=== PATIENT | female | born 1980 | race Caucasian/White ===

== ENCOUNTER 2024-08-31 12:19 | Inpatient (IN) | payer MEDICAID, OTHER ==
[~2024-08-31] VITALS: Ht 149.9 cm; Wt 52.0 kg
--- NOTE | 2024-08-31 12:37 | ED.PDOC ---
GI ASSESSMENT HPI Comments This is a 43-year-old female who comes in with chief complaint of abdominal pain for the past eight days. The patient states that she has had similar pain in 2019 but they never told her what it was. They did find possibly a mass on her adrenal gland. She is now complaining of the right upper quadrant pain which radiates towards her back. She rates the pain as a 6/10 and it was associated with nausea but no vomiting or diarrhea. She denies any fever or chills. She states that occasionally the pain wakes her up in the middle of the night. Chief Complaint: Abdominal Pain Time Seen by MD: 12:24 Primary Care Provider: UNKNOWN Reviewed Notes: Nurses Notes, Medications, Allergies (Allergies to codeine) Allergies: Coded Allergies: Codeine (Verified Allergy, Unknown, 08/31/24) Information Source: Patient Mode of Arrival: Ambulatory Timing: Days Duration: Since onset Prehospital treatment: None Quality: Burning Vomitus: None Stool: Normal Severity: Moderate Recent: None Recent Hx of: None Pain Location: RUQ Modifying Factors: Nothing Associated sign and symptoms: Nausea, Abdominal Pain Past Medical History PAST MEDICAL HISTORY: Anxiety, Depression, GERD Surgical History (Other): Left ovarian cyst surgery [employer] 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 Family History Family History: Reviewed,noncontributory to illness Social History Smoker: Greater Than 1 Pack/Day Alcohol: Denies ETOH Use Drugs: Denies Drug Use Lives In: Home Constitutional: denies: chills, diaphoresis, fatigue, fever, malaise, sweats, weakness, others EENTM: denies: blurred vision, double vision, ear bleeding, ear discharge, ear drainage, ear pain, ear ringing, eye pain, eye redness, hearing loss, mouth pain, mouth swelling, nasal discharge, nose bleeding, nose congestion, nose pain, photophobia, tearing, throat pain, throat swelling, voice changes, others Respiratory: denies: cough, hemoptysis, orthopnea, SOB at rest, shortness of breath, SOB with excertion, stridor, wheezing, others Cardiovascular: denies: chest pain, dizzy spells, diaphoresis, Dyspnea on e xertion, edema, irregular heart beat, left arm pain, lightheadedness, palpitations, PND, syncope, others Gastrointestinal: reports: abdominal pain, nausea; denies: abdomen distended, blood streaked bowels, constipated, diarrhea, dysphagia, difficulty swallowing, hematemesis, melena, poor appetite, poor fluid intake, rectal bleeding, rectal pain, vomiting, others Genitourinary: denies: abnormal vagina bleeding, burning, dyspareunia, dysuria, flank pain, frequency, hematuria, incontinence, pain, , vagina discharge, urgency, others Neurological: denies: dizziness, fainting, headache, left sided numbness, left sided weakness, numbness, paresthesia, pre-existing deficit, right sided numbness, right sided weakness, seizure, speech problems, tingling, tremors, weakness, others Musculoskeletal: denies: back pain, gout, joint pain, joint swelling, muscle pain, muscle stiffness, neck pain, others Integumetry: denies: bruises, change in color, change in hair/nails, dryness, laceration, lesions, lumps, rash, wounds, others Allergic/Immunocompromised: denies: Difficulty Healing, Frequent Infections, Hives, Itching, others Hematologic/Lymphatic: denies: anemia, blood clots, easy bleeding, easy bruis ing, swollen glands, others Endocrine: denies: excessive hunger, excessive sweating, excessive thirst, exc essive urination, flushing, intolerance to cold, intolerance to heat, unexplained weight gain, unexplained weight loss, others Psychiatric: denies: anxiety, bipolar disorder, depression, hopeless, panic disorder, schizophrenia, sleepless, suicidal, others Physical Exam General Appearance: Moderate Distress HEENT: Normal ENT Inspection, Pharynx Normal, TMs Normal Neck: Full Range of Motion, Non-Tender, Normal, Normal Inspection Respiratory: Chest Non-Tender, Lungs Clear, No Accessory Muscle Use, No Respiratory Distress, Normal Breath Sounds Cardiovascular: No Edema, No JVD, No Murmur, No Gallop, Normal Peripheral Puls es, Regular Rate/Rhythm Breast Exam: Deferred Gastrointestinal: No Organomegaly, No Pulsatile Mass, Normal Bowel Sounds, RUQ, Soft, Tenderness Genitalia: Deferred Pelvic: Deferred Rectal: Deferred Extremities: No calf tenderness, Normal capillary refill, Normal inspection, Normal range of motion, Non-tender, No pedal edema Musculoskeletal : Apperance: Normal Neurologic: Alert, local coordinator II-XII nml as Tested, No Motor Deficits, Normal Affect, Normal Mood, No Sensory Deficits Cerebellar Function: Normal Reflexes: Normal Skin: Dry, Normal Color, Warm Lymphatic: No Adenopathy Was a procedure done? Was a procedure done?: No GI differential Dx Differential Diagnosis: Cholangitis, Cholecystitis, Gastritis/PUD, Gastroenteritis, Inflammatory BD, Pancreatitis, Electrolyte Imbalance, Food Poisoning X-Ray, Labs, Meds, VS Vital Signs Date Time Temp Pulse Resp B/P (MAP) Pulse Ox O2 Delivery O2 Flow Rate FiO2 08/31/24 12:30 97.7 99 18 127/87 (100) 100 Lab Test 08/31/24 13:25 08/31/24 12:53 Range/Units Urine Color Light-yellow Yellow Urine Clarity Turbid H Clear Urine pH 5.5 5.0-9.0 Urine Specific [place] 1.011 1.001-1.035 Urine Protein Negative Negative Urine Ketones 1+ H Negative Urine Blood Negative Negative /uL Urine Nitrite Negative Negative Urine Bilirubin Negative Negative Urine Urobilinogen Normal Negative mg/dL Urine Leukocyte Esterase Trace Negative /uL Urine RBC 1 0 - 4 /hpf Urine WBC 3 0 - 5 /hpf Urine Squamous Epithelial Cells Few <5 /hpf Urine Bacteria Few H None Seen /hpf Urine Glucose Normal Normal mg/dL White Blood Count 8.3 4.4-10.8 10^3/uL Red Blood Count 4.84 4.0-5.20 10^6/uL Hemoglobin 15.4 12.2-16.2 g/dL Hematocrit 44.6 36.0-46.0 % Mean Corpuscular Volume 92.1 80.0-100.0 fL Mean Corpuscular Hemoglobin 31.9 28.0-32.0 pg Mean Corpuscular Hemoglobin Concent 34.6 32.0-36.0 g/dL Red Cell Distribution Width 14.3 11.8-14.3 % Platelet Count 349 140-450 10^3/uL Mean Platelet Volume 8.2 6.9-10.8 fL Neutrophils (%) (Auto) 56.9 37.0-80.0 % Lymphocytes (%) (Auto) 28.3 10.0-50.0 % Monocytes (%) (Auto) 6.9 0.0-12.0 % Eosinophils (%) (Auto) 6.7 0.0-7.0 % Basophils (%) (Auto) 1.2 0.0-2.0 % Neutrophils # (Auto) 4.7 1.6-8.6 10 ^3/uL Lymphocytes # (Auto) 2.3 0.4-5.4 10 ^3/uL Monocytes # (Auto) 0.6 0-1.3 10 ^3/uL Eosinophils # (Auto) 0.6 0-0.8 10 ^3/uL Basophils # (Auto) 0.1 0-0.2 10 ^3/uL Nucleated Red Blood Cells 0.2 % Sodium Level 138 136-145 mmol/L Potassium Level 3.5 3.5-5.1 mmol/L Chloride Level 102 98-107 mmol/L Carbon Dioxide Level 26 20-31 mmol/L Anion Gap 10 5-15 Blood Urea Nitrogen 7 L 9-23 mg/dL Creatinine 0.62 0.550-1.02 mg/dL Glomerular Filtration Rate Calc 113 >90 mL/min BUN/Creatinine Ratio 11.3 10.0-20.0 Serum Glucose 82 74-106 mg/dL Calcium Level 10.1 8.7-10.4 mg/dL Total Bilirubin 0.7 0.2-1.0 mg/dL Aspartate Amino Transferase (AST) 18 13-40 U/L Alanine Aminotransferase (ALT) 17 7-40 U/L Alkaline Phosphatase 75 46-116 U/L Total Protein 7.6 5.7-8.2 g/dL Albumin 4.7 3.2-4.8 g/dL Lipase 60 H 12-53 U/L US GALLBLADDER IMPRESSION: Unremarkable abdominal ultrasound. At this time, the CBC is within normal limits The chemistry panel is within normal limits The lipase level is elevated at 60 The urine test is positive for a small UTI The patient was still having persistent abdominal pain The patient was given morphine for the pain and Zofran for the nausea The patient was being admitted at this time Images Reviewed?: Images reviewed and evaluated by me Time of 1ST Reevaluation: 12:36 Reevaluation 1ST: Unchanged Patient Education/Counseling: Diagnosis, Treatment, Prognosis Family Education/Counseling: No Family Present Departure 1 Departure Time of Disposition: 14:43 Impression: Primary Impression: Intractable abdominal pain Additional Impression: Elevated lipase Disposition: ADMITTED INPATIENT Admit to: Med Surg Condition: Fair Critical Care Note Critical Care Time?: No Stability Stability form required: Yes Unstable for transfer: ED Physician Assesment (Clinical assesment) Heart Score Heart Score: Heart Score Response (Comments) Value History N/A 0 EKG N/A 0 Age N/A 0 Risk Factors N/A 0 Troponin N/A 0 Total 0 I personally scribed for SILVIO LANDRY MD ([email or web address]) on 08/31/24 at 14:19. Electronically submitted by Franky Wang ([facility]). SILVIO LANDRY MD Aug 31, 2024 12:37
[2024-08-31 12:52] LABS: Urine Bacteria FEW /hpf (None Seen); Urine Blood Negative /uL (Negative); Urine Clarity Turbid (Clear); Urine Color Light-Yellow (Yellow); Urine Protein, UAD Negative (Negative); Urine Specific Gravity 1.011 (1.001-1.035); Urine Urobilinogen Normal (Negative); Urine WBC 3 /hpf (0 - 5); Urine pH 5.5 (5.0-9.0)
[2024-08-31 13:00] LABS: Basophils # (auto) 0.1 10 ^3/uL (0-0.2); Basophils % (auto) 1.2 % (0.0-2.0); Eosinophils # (auto) 0.6 10 ^3/uL (0-0.8); Eosinophils % (auto) 6.7 % (0.0-7.0); Hematocrit 44.6 % (36.0-46.0); Hemoglobin 15.4 g/dL (12.2-16.2); Lymphocytes # (auto) 2.3 10 ^3/uL (0.4-5.4); Lymphocytes % (auto) 28.3 % (10.0-50.0); Mean Corpuscular Hemoglobin 31.9 pg (28.0-32.0); Mean Corpuscular Hgb Conc. 34.6 g/dL (32.0-36.0); Mean Corpuscular Volume 92.1 fL (80.0-100.0); Monocytes # (auto) 0.6 10 ^3/uL (0-1.3); Monocytes % (auto) 6.9 % (0.0-12.0); Neutrophils # (auto) 4.7 10 ^3/uL (1.6-8.6); Neutrophils % (auto) 56.9 % (37.0-80.0); Nucleated Red Blood Cells % 0.2 %; Platelet Count (auto) 349 10^3/uL (140-450); Red Blood Cells 4.84 10^6/uL (4.0-5.20); Red Cell Distribution Width 14.3 % (11.8-14.3); White Blood Cell 8.3 10^3/uL (4.4-10.8)
[2024-08-31 13:34] LABS: Alanine Aminotransferase 17 U/L (7-40); Albumin 4.7 g/dL (3.2-4.8); Alkaline Phosphatase 75 U/L (46-116); Anion Gap 10 (5-15); Aspartate Aminotransferase 18 U/L (13-40); BUN/Creatinine Ratio 11.3 (10.0-20.0); Bilirubin, Total 0.7 mg/dL (0.2-1.0); Blood Urea Nitrogen 7 mg/dL (9-23); Calcium 10.1 mg/dL (8.7-10.4); Carbon Dioxide 26 mmol/L (20-31); Chloride 102 mmol/L (98-107); Glucose 82 mg/dL (74-106); Potassium 3.5 mmol/L (3.5-5.1); Sodium 138 mmol/L (136-145); Total Protein 7.6 g/dL (5.7-8.2)
--- NOTE | 2024-08-31 13:34 | DVH ---
US GALLBLADDER HISTORY: ruq pain COMPARISON: None TECHNIQUE: Transverse and longitudinal grayscale and color sonographic images were obtained of the ab domen. FINDINGS: Liver: - Size: 12.7 cm - Echogenicity: Heterogenous - Surface Contour: Smooth - Liver Lesion(s): None - Portal Vein: Patent and forward flowing. - Bile Ducts: Normal. The common bile duct measures 3.7 mm. Gallbladder: Normal. The sonographic Aragon sign is negative. Pancreas: Not well visualized. Kidneys: - Right kidney size: 9.8 cm. There is no hydronephrosis, renal calculi, or mass lesion. Other: None IMPRESSION: Unremarkable abdominal ultrasound.
[2024-08-31 13:54] LABS: Lipase 60 U/L (12-53)
[2024-08-31] MEDS: PANTOPRAZOLE 40 MG/10 ML VIAL INJ IV ONE ×2 (15:21→15:28)
[2024-08-31] MEDS: ONDANSETRON HCL 4 MG/2 ML VIAL IV ONE (15:21)
[2024-08-31] MEDS: MORPHINE SULFATE 4 MG/ML SYR/VIAL IV ONE (15:22)
[2024-08-31] MEDS: ONDANSETRON HCL 4 MG/2 ML VIAL ONE (15:28)
[2024-08-31] MEDS: MORPHINE SULFATE 4 MG/ML SYR/VIAL ONE (15:29)
[2024-08-31] MEDS ORDERED: DOCUSATE SOD 100 MG CAP PO PRN (21:00)
[2024-08-31] MEDS ORDERED: NITROGLYCERIN 0.4 MG SL TAB SL PRN (21:00)
[2024-08-31] MEDS ORDERED: MORPHINE SULFATE INJ 2 MG/ml SYRG IV PRN ×3 (21:00→23:00)
[2024-08-31] MEDS: SODIUM CHLOR 0.9% PF (SALINE LOCK) 10ML VIAL/SYR IV SCH (22:05)
--- NOTE | 2024-08-31 22:50 | DVHHPRES ---
History of Present Illness Resident Creating Document: TEA DREW RESIDENT History of Present Illness Patient is 43 years old female with past medical history of anxiety, depression, GERD came with a complaint of abdominal pain. As per patient patient has been having abdominal pain started 8 days before. Patient reported pain is intermittent, in the upper upper abdominal region, crampy in nature, usually last 5 minutes, was pain was 10/10, radiates to the shoulder, factor, relieved with lying on the abdomen. Patient also reported having nausea but no vomiting. Patient denied any fever, dysuria, constipation or diarrhea, chest pain or shortness of breath, acute joint pain or swelling, dysarthria or slurring of speech or eating over a week. Initial lab workup revealed lipase 60, urinalysis revealed leukocyte esterase trace, RBC 1, WBC 3, bacteria few. Ultrasound of the abdomen revealed unremarkable abdominal ultrasound. Past Medical History anxiety, depression, GERD Past Surgical History Status post left ovarian cyst surgery Family History Lives with a partner, denies smoking, denies alcoholism, denies substance abuse Review of Systems Review of Systems Allergy- codeine Patient was seen today at the bedside. Patient abdominal pain and nausea Cardiovascular- deny acute chest pain or shortness of breath or cough or palpitation Respiratory- denies cough or short of breath or wheezing Gastrointestinal- denies any rectal bleeding, nausea or vomiting Musculoskeletal-denies acute joint swelling or tenderness or redness Neurological- denies acute dysarthria, dysphagia, change in vision Psychiatry- denies depression or SI or HI Skin- denies acute rash or purpura Allergies: Coded Allergies: Codeine (Verified Allergy, Unknown, 08/31/24) Medications Current Medications Medications Dose Ordered Sig/Pierre Route Start Time Stop Time Status Last Admin Dose Admin Sodium Chloride 10 ml Q8HR IV 08/31/24 22:00 08/31/24 22:05 10 ML Ondansetron HCl 4 mg Q4HP PRN IV 08/31/24 21:00 Docusate Sodium 100 mg BIDPRN PRN PO 08/31/24 21:00 Acetaminophen 650 mg Q6HP PRN PO 08/31/24 21:00 Morphine Sulfate 2 mg Q4HPRN PRN IV 08/31/24 21:00 Nitroglycerin 0.4 mg Q5MINP PRN SL 08/31/24 21:00 Morphine Sulfate 2 mg Q30M PRN IV 08/31/24 21:00 Exam Vital Signs Vital Signs Date Time Temp Pulse Resp B/P (MAP) Pulse Ox O2 Delivery O2 Flow Rate FiO2 08/31/24 18:18 97.7 70 16 117/78 (91) 99 97.7 08/31/24 14:56 Room Air Exam General examination- awake, alert, oriented, conversant HEENT- PEERLA, no acute nasal discharge Cardiovascular- S1-S2 audible, rate and rhythm regular, no murmur Respiratory- CTAB, no wheeze or rhonchi Gastrointestinal-upper abdominal tenderness, bowel sound+. Nondistended Musculoskeletal-no acute joint swelling or tenderness or redness# Lower extremity- no leg edema Neurological- cranial nerves intact, no acute dysarthria or dysphagia Psychiatry- denies depression or SI or HI Skin- no acute rash or purpura Labs/Xrays Labs Test 08/31/24 13:25 08/31/24 12:53 Range/Units Urine Color Light-yellow Yellow Urine Clarity Turbid H Clear Urine pH 5.5 5.0-9.0 Urine Specific [place] 1.011 1.001-1.035 Urine Protein Negative Negative Urine Ketones 1+ H Negative Urine Blood Negative Negative /uL Urine Nitrite Negative Negative Urine Bilirubin Negative Negative Urine Urobilinogen Normal Negative mg/dL Urine Leukocyte Esterase Trace Negative /uL Urine RBC 1 0 - 4 /hpf Urine WBC 3 0 - 5 /hpf Urine Squamous Epithelial Cells Few <5 /hpf Urine Bacteria Few H None Seen /hpf Urine Glucose Normal Normal mg/dL White Blood Count 8.3 4.4-10.8 10^3/uL Red Blood Count 4.84 4.0-5.20 10^6/uL Hemoglobin 15.4 12.2-16.2 g/dL Hematocrit 44.6 36.0-46.0 % Mean Corpuscular Volume 92.1 80.0-100.0 fL Mean Corpuscular Hemoglobin 31.9 28.0-32.0 pg Mean Corpuscular Hemoglobin Concent 34.6 32.0-36.0 g/dL Red Cell Distribution Width 14.3 11.8-14.3 % Platelet Count 349 140-450 10^3/uL Mean Platelet Volume 8.2 6.9-10.8 fL Neutrophils (%) (Auto) 56.9 37.0-80.0 % Lymphocytes (%) (Auto) 28.3 10.0-50.0 % Monocytes (%) (Auto) 6.9 0.0-12.0 % Eosinophils (%) (Auto) 6.7 0.0-7.0 % Basophils (%) (Auto) 1.2 0.0-2.0 % Neutrophils # (Auto) 4.7 1.6-8.6 10 ^3/uL Lymphocytes # (Auto) 2.3 0.4-5.4 10 ^3/uL Monocytes # (Auto) 0.6 0-1.3 10 ^3/uL Eosinophils # (Auto) 0.6 0-0.8 10 ^3/uL Basophils # (Auto) 0.1 0-0.2 10 ^3/uL Nucleated Red Blood Cells 0.2 % Sodium Level 138 136-145 mmol/L Potassium Level 3.5 3.5-5.1 mmol/L Chloride Level 102 98-107 mmol/L Carbon Dioxide Level 26 20-31 mmol/L Anion Gap 10 5-15 Blood Urea Nitrogen 7 L 9-23 mg/dL Creatinine 0.62 0.550-1.02 mg/dL Glomerular Filtration Rate Calc 113 >90 mL/min BUN/Creatinine Ratio 11.3 10.0-20.0 Serum Glucose 82 74-106 mg/dL Calcium Level 10.1 8.7-10.4 mg/dL Total Bilirubin 0.7 0.2-1.0 mg/dL Aspartate Amino Transferase (AST) 18 13-40 U/L Alanine Aminotransferase (ALT) 17 7-40 U/L Alkaline Phosphatase 75 46-116 U/L Total Protein 7.6 5.7-8.2 g/dL Albumin 4.7 3.2-4.8 g/dL Lipase 60 H 12-53 U/L Assessment/Plan Assessment/Plan #Acute abdominal pain likely due to pancreatitis/gastritis -lipase 60, -ultrasound of the abdomen-Unremarkable abdominal ultrasound. -continue pain medication as prescribed -continue pantoprazole 40 mg IV daily -continue IV fluid as prescribed -CT of the abdomen and pelvis- No CT evidence for acute intra-abdominal or intrapelvic process. 2.6 cm right adrenal adenoma. Bilateral pars defects with grade 1 anterolisthesis at L5-S1. #Suspected acute pancreatitis --lipase 60, -ultrasound of the abdomen-Unremarkable abdominal ultrasound. -continue pain medication as prescribed -continue pantoprazole 40 mg IV daily -continue IV fluid as prescribed - CT of the abdomen and pelvis -No CT evidence for acute intra-abdominal or intrapelvic process. 2.6 cm right adrenal adenoma. Bilateral pars defects wi th grade 1 anterolisthesis at L5-S1. #acute cystitis -leukocyte esterase trace, RBC 1, WBC 3, bacteria few -continue ceftriaxone 1 g IV daily -pending urine CS # GERD -continue pantoprazole 40 mg IV daily # anxiety -follow up outpatient # depression -follow up outpatient # 2.6 cm right adrenal adenoma -incidental finding on CT scan of the abdomen -outpatient follow up #Bilateral pars defects with grade 1 anterolisthesis at L5-S1. -incidental finding on CT abdomen -outpatient follow up Goals of care/advance care planning; FULL CODE; discussed with the patient >15 minutes PUD prophylaxis: DVT prophylaxis: PCP-Dr. Jessica Ruffin Plan discussed with Dr. Ortiz, nursing staff, patient Total time spent on patient evaluation, chart review, assessment and plan, discussion discussion >30 minutes Plan discussed with: Patient Plan discussed with: Patient, Other (RN) My Orders Orders - TEA DREW RESIDENT Procedure Category Date Status Time Admit ADMIT 08/31/24 Transmitted 20:48 Code Status CODE 08/31/24 Transmitted 20:48 Sodium Chloride Lock PHA 08/31/24 In Process (Saline Lock Ns) 22:00 Ondansetron Hcl PHA 08/31/24 In Process (Zofran) 21:00 Docusate Sodium PHA 08/31/24 In Process Capsule (Colace 21:00 Complete Blood Count LAB 09/01/24 Verified 04:00 Comprehensive LAB 09/01/24 Verified Metabolic Panel 04:00 Npo (Nothing By DIET 09/01/24 Transmitted Mouth) Diet Breakfast Acetaminophen Tablet PHA 08/31/24 In Process (Tylenol Tablet) 21:00 Morphine Sulfate PHA 08/31/24 In Process Injection 21:00 Nitroglycerin PHA 08/31/24 In Process Sublingual (Ntrostat 21:00 Morphine Sulfate PHA 08/31/24 In Process Injection 21:00 Oxygen By Nasal RT 08/31/24 Transmitted Cannula 20:48 Stat Ekg For Chest YOANNA 08/31/24 In Process Pain 20:48 Notify Of Changes YOANNA 08/31/24 In Process From Base 20:48 Diamond Sizer And Grader For YOANNA 08/31/24 In Process 24 Hours 20:48 Emergency Dysrhythmia BANNER 08/31/24 In Process Protocol 20:48 Rhythm Strips Once BANNER 08/31/24 In Process Every Shift 20:48 Date of Service: Aug 31, 2024 Billing Provider: BLANCHE ORTIZ MD Common Visit Codes: [id number] INP/OBS CARE (HIGH) TEA DREW Aug 31, 2024 22:50 BLANCHE ORTIZ MD Sep 01, 2024 17:52
[2024-08-31] MEDS ORDERED: ONDANSETRON HCL 4 MG/2 ML VIAL IV PRN (23:00)
[2024-08-31] MEDS: D5W/SOD CHLO 0.9% 1,000 ML IV SCH (23:00)
[2024-09-01] MEDS: cefTRIAXone 1GM/50ML D5W 50 ML IV ONE (00:09)
[2024-09-01 00:18] LABS: Amphetamine Screen, Urine Neg (NEGATIVE)
[2024-09-01 00:19] LABS: Barbiturate Scree,Urine Neg (NEGATIVE); Benzodiazephine Screen, Urine Neg (NEGATIVE); Cannabinoid Screen, Urine Neg (NEGATIVE); Cocaine Screen, Urine Neg (NEGATIVE); Opiate Scree,Urine Neg (NEGATIVE); Phencyclidine Screen, Urine Neg (NEGATIVE)
--- NOTE | 2024-09-01 04:20 | DVH ---
Procedure: CT CT AB PEL WO CON-NO ORAL OR IV 09/01/2024 12:19 AM Indication: Abdominal pain, nausea Comparison Study: None available at time of dictation. Technique: Noncontrast Axial images of the abdomen and pelvis were obtained and reformatted in [place] l and sagittal planes. All CT scans at this medical facility are performed using dose modulation techniques as appropriate t o a performed exam including the following: Automated exposure control was utilized; adjustment of th e MA and/or KV according to patient size; and use of iterative reconstruction technique. CT Dose: CTDI volume is 5.36 mGy. Dose-length product is 268.97 mGy*cm FINDINGS: Imaged portions of the lung bases appear unremarkable. Limited noncontrast evaluation of the liver, s pleen, gallbladder, pancreas, and kidneys appear unremarkable. There is a 2.6 cm right adrenal lesion with characteristics of a adenoma. No evidence of bowel obstruction or focal bowel wall thickening. The appendix appears normal. No holley e fluid, free air, or adenopathy. No suspicious osseous lesion. Bilateral pars defects with grade 1 a nterolisthesis at L5-S1. IMPRESSION: 1. No CT evidence for acute intra-abdominal or intrapelvic process. 2. 2.6 cm right adrenal adenoma. 3. Bilateral pars defects with grade 1 anterolisthesis at L5-S1. hs:Y
[2024-09-01 04:38] LABS: Basophils # (auto) 0.2 10 ^3/uL (0-0.2); Basophils % (auto) 2.2 % (0.0-2.0); Eosinophils # (auto) 0.6 10 ^3/uL (0-0.8); Eosinophils % (auto) 8.1 % (0.0-7.0); Hemoglobin 14.1 g/dL (12.2-16.2); Lymphocytes % (auto) 26.1 % (10.0-50.0); Mean Corpuscular Hemoglobin 32.6 pg (28.0-32.0); Mean Corpuscular Hgb Conc. 35.3 g/dL (32.0-36.0); Mean Corpuscular Volume 92.2 fL (80.0-100.0); Monocytes # (auto) 0.5 10 ^3/uL (0-1.3); Monocytes % (auto) 7.1 % (0.0-12.0); Neutrophils # (auto) 4.3 10 ^3/uL (1.6-8.6); Neutrophils % (auto) 56.5 % (37.0-80.0); Nucleated Red Blood Cells % 0.1 %; Platelet Count (auto) 275 10^3/uL (140-450); Red Blood Cells 4.34 10^6/uL (4.0-5.20); Red Cell Distribution Width 13.9 % (11.8-14.3); White Blood Cell 7.6 10^3/uL (4.4-10.8)
[2024-09-01 04:57] LABS: Alanine Aminotransferase 15 U/L (7-40); Albumin 4.5 g/dL (3.2-4.8); Alkaline Phosphatase 67 U/L (46-116); Anion Gap 9 (5-15); Aspartate Aminotransferase 15 U/L (13-40); BUN/Creatinine Ratio 12.9 (10.0-20.0); Blood Urea Nitrogen 8 mg/dL (9-23); Calcium 9.8 mg/dL (8.7-10.4); Carbon Dioxide 26 mmol/L (20-31); Chloride 103 mmol/L (98-107); Glucose 73 mg/dL (74-106); Potassium 3.8 mmol/L (3.5-5.1); Sodium 138 mmol/L (136-145)
[2024-09-01 04:58] LABS: Bilirubin, Total 0.5 mg/dL (0.2-1.0); Total Protein 6.8 g/dL (5.7-8.2)
[2024-09-01] MEDS: LACTATED RINGER'S 1,000 ML IV SCH (06:25)
[2024-09-01] MEDS: ONDANSETRON HCL 4 MG/2 ML VIAL IV PRN (09:23)
[2024-09-01] MEDS: cefTRIAXone 1GM/50ML D5W 50 ML IV SCH (09:23)
[2024-09-01] MEDS: PANTOPRAZOLE 40 MG/10 ML VIAL INJ IV SCH (10:14)
[2024-09-01] MEDS ORDERED: MAALOX PLUS or MAALOX 30 ML PO PRN (12:30)
[2024-09-01] MEDS: ACETAMINOPHEN 325 MG TAB PO PRN (13:58)
--- NOTE | 2024-09-01 14:17 | DVHPNRES ---
Progress Note Date Seen: Sep 01, 2024 Resident Creating Document: DEIRDRE LOPEZ RESIDENT Medical Necessity Reason Pt with a Central, PICC or Fol: No Subjective Review of Systems BERENICE WASHINGTON is a 43 years old female with a PMH of anxiety, depression, GERD, hiatal hernia presented to the ED with the chief complaints of abdominal pain since 8 as prior to admission. Patient reported pain has been started in the right upper quadrant intermittent, 10/10, diffusing 2 backwards and to the shoulder blades, not aggravated with eating or drinking but lying flat associated with severe nausea but no vomiting or diarrhea, fever, constipation, chest pain, shortness of breath and other associated symptoms. patient denies eating unusual food, sick contacts, recent travel. PMH: Anxiety, depression, GERD, hiatal hernia PSH: D and C, status post left ovarian cyst surgery Family history: Reviewed, noncontributory Social history: Lives with a partner. Denies smoking, alcohol and other drug abuse Allergies: codeine allergy Patient seen and examined at the bedside. Patient reported improvement in her abdominal pain since admission. Patient concerns were addressed. Advanced the diet to full liquid. Currently on Protonix , given GI cocktail. gallbladder ultrasound showed no acute changes, CT abdominal pelvis showed no acute abdominal changes but 2.6 cm right adrenal adenoma, grade 1 anterolisthesis at L5-S1. Patient reports: Feels better Objective vital signs Vital Sign Date Time Temp Pulse Resp B/P (MAP) Pulse Ox O2 Delivery O2 Flow Rate FiO2 09/01/24 11:49 98.3 81 17 104/64 (77) 95 98.3 09/01/24 08:00 Room Air* 0 21 medications Current Medications Medications Dose Ordered Sig/Pierre Route Start Time Stop Time Status Last Admin Dose Admin Sodium Chloride 10 ml Q8HR IV 08/31/24 22:00 09/01/24 14:04 10 ML Ondansetron HCl 4 mg Q4HP PRN IV 08/31/24 21:00 09/01/24 09:23 4 MG Docusate Sodium 100 mg BIDPRN PRN PO 08/31/24 21:00 Acetaminophen 650 mg Q6HP PRN PO 08/31/24 21:00 09/01/24 13:58 650 MG Morphine Sulfate 2 mg Q4HPRN PRN IV 08/31/24 21:00 Nitroglycerin 0.4 mg Q5MINP PRN SL 08/31/24 21:00 Morphine Sulfate 2 mg Q30M PRN IV 08/31/24 21:00 Pantoprazole Sodium 40 mg DAILY IV 09/01/24 10:00 09/01/24 10:14 40 MG Ondansetron HCl 4 mg Q4HPRN PRN IV 08/31/24 23:00 Morphine Sulfate 1 mg Q6HP PRN IV 08/31/24 23:00 Ceftriaxone Sodium 50 ml @ 100 mls/hr DAILY@09 IV 09/01/24 09:00 09/01/24 09:23 100 MLS/HR Lactated Ringer's 1,000 ml @ 125 mls/hr Q8H IV 09/01/24 06:00 09/01/24 14:04 125 MLS/HR Al Hydrox/Mg Hydrox/Simethicone 15 ml Q8HP PRN PO 09/01/24 12:30 UNV Examination Pt is lying on bed General Appearance: Alert, Oriented X3, Cooperative, Not in acute distress HEENT: Atraumatic, Mucous membranes moist/pink Respiratory: Clear to auscultation, Normal air movement, No added sounds Cardiovascular: Regular rate, Normal S1, Normal S2, No murmurs Abdominal: Right upper quadrant and mild epigastric tenderness Active bowel sounds, Soft, no distention, Extremities: No edema, Normal pulses, No tenderness/swelling Skin: No Significant rash, except past surgical scars Neuro: Normal speech, sensorimotor deficits none Psych/Mental Status: Mental status NL, Mood NL Nurse was there as sharperone during examination laboratory and microbiology Laboratory Tests 09/01/24 03:39 Test 09/01/24 03:39 Range/Units Serum Glucose 73 L 74-106 mg/dL Labs and/or images reviewed: Labs reviewed by me, Image(s) reviewed by me Problem List/Assessment/Plan Problem List/Assessment/Plan # acute abdominal pain likely due to resolving pancreatitis vs gastritis - mildly elevated lipase - currently giving Protonix and GI cocktail - gallbladder ultrasound showed no acute changes, - CT abdominal pelvis showed no acute abdominal changes but 2.6 cm right adrenal adenoma - Advanced the diet to full liquid. # rule out acute UTI - urinalysis weakly positive - currently on Rocephin # GERD -continue pantoprazole 40 mg IV daily # Anxiety -follow up outpatient # Depression -follow up outpatient # right adrenal adenoma -incidental finding on CT scan of the abdomen -outpatient follow up # Bilateral pars defects with grade 1 anterolisthesis at L5-S1. -incidental finding on CT abdomen -outpatient follow up No VTE PPX since patient is ambulatory Protonix regular diet Reconciled home meds Goals of care discussed with the patient for more than 27 minutes: Full code status Case management discussed with Dr. Mcdonald, patient and nurse Plan discussed with: Patient My Orders My Orders Orders - DEIRDRE LOPEZ Procedure Category Date Status Time Vitamin B12 LAB 09/01/24 In Process 08:33 Vitamin D, 25-Hydroxy LAB 09/01/24 In Process 08:33 Full Liq Diet DIET 09/01/24 Transmitted Lunch Alum & Mag PHA 09/01/24 Logged Hydrox-Simethicone 12:30 Alum & Mag PHA 09/01/24 Logged Hydrox-Simethicone 12:30 Date of Service: Sep 01, 2024 Billing Provider: MIKKI MCDONALD MD Common Visit Codes: [id number] INP/OBS CARE(HIGH) DEIRDRE LOPEZ Sep 01, 2024 14:17 MIKKI MCDONALD MD Sep 01, 2024 20:03
[2024-09-01] MEDS: MAALOX PLUS or MAALOX 30 ML PO ONE (16:26)
[2024-09-01 18:53] VITALS: RESP 18
[2024-09-01] MEDS ORDERED: ALPR0.5T7 PO (19:10)
[2024-09-01] MEDS ORDERED: CALC500C3 PO (19:10)
[2024-09-01 21:00] VITALS: BP 130/77; PULSE 79; RESP 16; TEMP 97.4; O2SAT 98
[2024-09-02 00:45] VITALS: BP 108/53; PULSE 71; RESP 16; TEMP 97.6; O2SAT 99
[2024-09-02 09:00] VITALS: BP 99/62; PULSE 74; RESP 18; TEMP 97.9; O2SAT 99
[2024-09-02 13:00] VITALS: BP 104/60; PULSE 77; RESP 20; TEMP 98; O2SAT 98
[2024-09-02] MEDS ORDERED: GICOCKTAIL PO (15:22)
[2024-09-02] MEDS ORDERED: NUTR-559 PO (15:22)
[2024-09-02] MEDS ORDERED: PANT40T PO (15:22)
[2024-09-02] MEDS ORDERED: ACET-1882 PO (15:22)
[2024-09-02 15:49] VITALS: BP 104/60; PULSE 77; RESP 20; TEMP 98; O2SAT 98
--- NOTE | 2024-09-02 16:33 | DVHDSRES ---
Discharge Summary Date of Admission Resident Creating Document: DEIRDRE LOPEZ RESIDENT Aug 31, 2024 at 20:48 Date of Discharge: Sep 02, 2024 Admitting Diagnosis Abdominal pain Labs/Diagnostic Data: Laboratory Results Test 09/02/24 06:00 09/01/24 07:50 09/01/24 03:39 08/31/24 13:25 Hemoglobin A1c 4.9 % A1C (<5.7) Magnesium Level 2.1 mg/dL (1.6-2.6) Lipase 44 U/L (12-53) Lactic Acid Level 0.8 mmol/L (0.4-2.0) White Blood Count 7.6 10^3/uL (4.4-10.8) Red Blood Count 4.34 10^6/uL (4.0-5.20) Hemoglobin 14.1 g/dL (12.2-16.2) Hematocrit 40.0 % (36.0-46.0) Mean Corpuscular Volume 92.2 fL (80.0-100.0) Mean Corpuscular Hemoglobin 32.6 pg (28.0-32.0) Mean Corpuscular Hemoglobin Concent 35.3 g/dL (32.0-36.0) Red Cell Distribution Width 13.9 % (11.8-14.3) Platelet Count 275 10^3/uL (140-450) Mean Platelet Volume 8.5 fL (6.9-10.8) Neutrophils (%) (Auto) 56.5 % (37.0-80.0) Lymphocytes (%) (Auto) 26.1 % (10.0-50.0) Monocytes (%) (Auto) 7.1 % (0.0-12.0) Eosinophils (%) (Auto) 8.1 % (0.0-7.0) Basophils (%) (Auto) 2.2 % (0.0-2.0) Neutrophils # (Auto) 4.3 10 ^3/uL (1.6-8.6) Lymphocytes # (Auto) 2.0 10 ^3/uL (0.4-5.4) Monocytes # (Auto) 0.5 10 ^3/uL (0-1.3) Eosinophils # (Auto) 0.6 10 ^3/uL (0-0.8) Basophils # (Auto) 0.2 10 ^3/uL (0-0.2) Nucleated Red Blood Cells 0.1 % Sodium Level 138 mmol/L (136-145) Potassium Level 3.8 mmol/L (3.5-5.1) Chloride Level 103 mmol/L (98-107) Carbon Dioxide Level 26 mmol/L (20-31) Anion Gap 9 (5-15) Blood Urea Nitrogen 8 mg/dL (9-23) Creatinine 0.62 mg/dL (0.550-1.02) Glomerular Filtration Rate Calc 113 mL/min (>90) BUN/Creatinine Ratio 12.9 (10.0-20.0) Serum Glucose 73 mg/dL (74-106) Calcium Level 9.8 mg/dL (8.7-10.4) Total Bilirubin 0.5 mg/dL (0.2-1.0) Aspartate Amino Transferase (AST) 15 U/L (13-40) Alanine Aminotransferase (ALT) 15 U/L (7-40) Alkaline Phosphatase 67 U/L (46-116) Total Protein 6.8 g/dL (5.7-8.2) Albumin 4.5 g/dL (3.2-4.8) Vitamin B12 Level 441 pg/mL (211-911) Thyroid Stimulating Hormone (TSH) 1.69 uIU/mL (0.55-4.78) Urine Color Light-yellow (Yellow) Urine Clarity Turbid (Clear) Urine pH 5.5 (5.0-9.0) Urine Specific [place] 1.011 (1.001-1.035) Urine Protein Negative (Negative) Urine Ketones 1+ (Negative) Urine Blood Negative /uL (Negative) Urine Nitrite Negative (Negative) Urine Bilirubin Negative (Negative) Urine Urobilinogen Normal mg/dL (Negative) Urine Leukocyte Esterase Trace /uL (Negative) Urine RBC 1 /hpf (0 - 4) Urine WBC 3 /hpf (0 - 5) Urine Squamous Epithelial Cells Few /hpf (<5) Urine Bacteria Few /hpf (None Seen) Urine Glucose Normal mg/dL (Normal) Urine Opiates Screen Neg (NEGATIVE) Urine Fentanyl Screen Neg (NEGATIVE) Urine Barbiturates Screen Neg (NEGATIVE) Urine Phencyclidine Screen Neg (NEGATIVE) Urine Amphetamines Screen Neg (NEGATIVE) Urine Benzodiazepines Screen Neg (NEGATIVE) Urine Cocaine Screen Neg (NEGATIVE) Urine Cannabinoids Screen Neg (NEGATIVE) Test 08/31/24 12:53 Beta HCG, Quantitative 1.5 mIU/mL (1.5-4.2) Plasma/Serum Blood Alcohol < 3.0 mg/dL (<10) Other Laboratory Tests 09/01/24 03:39 Brief Hx & Hospital Course: BERENICE WASHINGTON is a 43 years old female with a PMH of anxiety, depression, GERD, hiatal hernia presented to the ED with the chief complaints of abdominal pain since 8 as prior to admission. Patient reported pain has been started in the right upper quadrant intermittent, 10/10, diffusing 2 backwards and to the shoulder blades, not aggravated with eating or drinking but lying flat associated with severe nausea but no vomiting or diarrhea, fever, constipation, chest pain, shortness of breath and other associated symptoms. patient denies eating unusual food, sick contacts, recent travel. Patient required hospital admission for further evaluation and management of acute abdominal pain. Gallbladder ultrasound showed no acute changes, CT abdominal pelvis showed no acute abdominal changes but 2.6 cm right adrenal adenoma, grade 1 anterolisthesis at L5-S1. Due to history of hiatal hernia and current symptoms we gave Protonix and GI cocktail, advanced diet from clear to soft mechanical as patient tolerated, she is able to tolerate. Due to UTI patient was given Rocephin. Patient condition was improved, hemodynamically stable and in condition to be discharged home with optimal medical treatment . Patient agreed with the discharge plan. Patient was advised about healthy lifestyle habits including diet and exercise and to follow up with PCP and GI after the discharge. Pt is lying on bed General Appearance: Alert, Oriented X3, Cooperative, Not in acute distress HEENT: Atraumatic, Mucous membranes moist/pink Respiratory: Clear to auscultation, Normal air movement, No added sounds Cardiovascular: Regular rate, Normal S1, Normal S2, No murmurs Abdominal: Mild right upper quadrant and epigastric tenderness Active bowel sounds, Soft, no distention, Extremities: No edema, Normal pulses, No tenderness/swelling Skin: No Significant rash, except past surgical scars Neuro: Normal speech, sensorimotor deficits none Psych/Mental Status: Mental status NL, Mood NL Nurse was there as sharperone during examination Operations or Procedures CT CT AB PEL WO CON-NO ORAL OR IV 09/01/2024 12:19 AM IMPRESSION: 1. No CT evidence for acute intra-abdominal or intrapelvic process. 2. 2.6 cm right adrenal adenoma. 3. Bilateral pars defects with grade 1 anterolisthesis at L5-S1. U/S gallbladder: Unremarkable abdominal ultrasound. Condition at Discharge: Stable Final Diagnosis/Problems List # acute abdominal pain likely due gastritis # Ruled out pancreatitis # rule out acute UTI # GERD # Anxiety # Depression # right adrenal adenoma # Bilateral pars defects with grade 1 anterolisthesis at L5-S1. Discharge Disposition: Home Discharge Instruct/Medications Diet: See Comment Diet comment: food with less fat,less acidic, less salt Activity: No Restrictions, As Tolerated Follow Up/Referral: PCP, Gastro Medications: Per EMR Discharge Statement: "Patient was advised to return to the ER or call 911 if any headaches, dizziness, shortness of breath, chest pain, abdominal pain, bleeding, fevers, or worsening of medical condition. Patient was counseled about treatment plan, medications, possible side effects, patientverbalized understanding. All questions were answered to the best of my ability. This discharge took greater then 30 minutes in planning, reviewing documentation, counseling the patient, and discussing with other team members." ASSESSMENT ASSESSMENT Assessment Acute Gastritis Date of Service: Sep 02, 2024 Billing Provider: MIKKI SOLORZANO MD Common Visit Codes: 81816-KTY/OBS DISCH DAY >30min Secondary Visit Codes: [id number] COUNSELING IND Coding Comment Comment Attending Attestation I saw and evaluated the patient. I reviewed the residents note and agree with findings and plan as documented in the residents note except as documented below. 15 minutes spent discussing regarding lifestyle, dietary and exercise changes to modify disease process and improve quality of life DEIRDRE LOPEZ RESIDENT Sep 02, 2024 16:33 MIKKI SOLORZANO MD Sep 03, 2024 08:19
[2024-09-02 16:37] VITALS: BP 138/65; PULSE 67; RESP 18; TEMP 97.8; O2SAT 98
[2024-09-03] MEDS ORDERED: ZOFR4T PO (09:41)
== END 2024-09-02 17:17 | disposition home or self-care (01) | DRG 241 ==
LOC: ER 12:19 → OVERFLOW 20:48 → WEST WING 09-01 18:30
PROVIDERS: ADMIT Student in an Organized Health Care Education/Training Program
DX: K29.00 Acute gastritis without bleeding (principal); D35.01 Benign neoplasm of right adrenal gland; F17.210 Nicotine dependence, cigarettes, uncomplicated; K21.9 Gastro-esophageal reflux disease without esophagitis; F41.9 Anxiety disorder, unspecified; F32.A Depression, unspecified; Z88.5 Allergy status to narcotic agent
CPT/HCPCS: 36415; 74176; 76705; 80053; 80307; 80320; 81001; 82306; 82607; 83036; 83605; 83690; 83735; 84443; 84702; 85025; 87040; 87086; G0378; J2405; J2470